=== PATIENT | female | born 1990 | race Caucasian/White ===

== ENCOUNTER 2020-03-02 14:52 | Outpatient (CLI) | payer BC ==
--- NOTE | 2020-03-02 16:27 | XRAY Report ---
PROCEDURE: Knee 3 View LT INDICATIONS: LT KNEE PAIN TECHNIQUE: 3 views of the knee(s) were acquired. COMPARISON: None. FINDINGS: Bones: No fracture or dislocation. Joint space of the knee is maintained. Normal patellar height and position. No suspicious bony lesions. Soft tissues: No joint effusion. No suspicious soft tissue calcifications. IMPRESSION: Normal left knee radiographs. Reviewed by: Hadley Friend MD on 03/02/2020 4:25 PM PDT Approved by: Hadley Friend MD on 03/02/2020 4:25 PM PDT Station ID: [id number]
== END 2020-03-02 14:53 | disposition home or self-care (01) ==
LOC: DI.S 14:52
PROVIDERS: ATTEND Naprapath
DX: M25.562 Pain in left knee (principal); G89.29 Other chronic pain

== ENCOUNTER 2022-07-10 17:18 | Emergency (ER) | payer BC ==
[2022-07-10 17:24] VITALS: BP 160/100
[2022-07-10] MEDS ORDERED: BUFFERED LIDOCAINE 10 ML SYRINGE SUBQ STA (18:08)
--- NOTE | 2022-07-10 18:22 | ED Physician Documentation ---
PD HPI UPPER EXT INJURY - Stated complaint Stated Complaint: LT THUMB LAC - Chief complaint Chief Complaint: Laceration - History obtained from History obtained from: Patient (Right-handed woman who did not know her tetanus status, but we can see that she got 1 in November 2018 cut her left nondominant thumb with a knife at home just prior to arrival.) PD PAST MEDICAL HISTORY - Present Medications Home Medications: Ambulatory Orders Medication Instructions Recorded Confirmed No Known Home Medications 07/10/22 07/10/22 - Allergies Allergies/Adverse Reactions: Allergies Allergy/AdvReac Type Severity Reaction Status Date / Time No Known Drug Allergies Allergy Verified 07/10/22 17:21 PD ED PE NORMAL - Vitals Vital signs reviewed: Yes - General General: Alert and oriented X 3, No acute distress - Extremities Extremities: Other (On the ulnar side of the distal right thumb there is a 1.5 cm laceration curvilinear that spans both skin and nail without distal neurova scular compromise.) - Neuro Neuro: Alert and oriented X 3, Normal speech Results - Vitals Vitals: Vital Signs - 24 hr 07/10/22 17:22 Temperature 36.5 C Heart Rate 80 Respiratory 16 Rate Blood Pressure 160/100 H O2 Saturation 97 Oxygen O2 Source Room air Procedures - Laceration (location) L thumb Length in cm: 1.5 Wound type: Curved Neurovascular status: Sensory intact, Motor intact Tendon involvement: Tendon intact Anesthesia: Lidocaine 1%, With bicarb (digital block) Wound preparation: Hibiclens, Irrigated copiously NS Skin layer closure: Nylon, Interrupted, Size #-0 - enter number (4-0), Sutures - enter # (4) Other: Patient tolerated well, No complications, Neurovascular intact, Tetanus UTD Departure - Departure Disposition: Home, Self Care Clinical Impression: Laceration of left thumb Qualifiers: Encounter type: initial encounter Damage to nail status: with damage Foreign body presence: without foreign body Qualified Code(s): S61.112A - Laceration without foreign body of left thumb with damage to nail, initial encounter Condition: Good Record reviewed to determine appropriate education?: Yes Instructions: ED Laceration Hand Comments: Come back for any signs of infection which would include: Redness, swelling, drainage, increased pain, or fevers. You can wash it soap and water. Keep it covered and moist with bacitracin ointment which is available over the counter; avoid neosporin. Follow-up with your physician in About 14 days for suture removal. Your blood pressure was elevated today on check into the emergency department. This does not mean that you have hypertension, it is a common phenomenon to come to the emergency department and have elevated blood pressure. I recommend that you see your primary care physician within the week to have it rechecked when you are feeling better.
== END 2022-07-10 18:46 | disposition home or self-care (01) ==
LOC: ED 17:18
DX: S61.012A Laceration without foreign body of left thumb without damage to nail, initial encounter (principal); W26.0XXA Contact with knife, initial encounter; Y92.009 Unspecified place in unspecified non-institutional (private) residence as the place of occurrence of the external cause
CPT/HCPCS: 12001; 99281

== ENCOUNTER 2022-07-14 09:47 | Outpatient (CLI) | payer BC ==
--- NOTE | 2022-07-14 14:10 | Ultrasound Report ---
PROCEDURE: Head or Neck Soft Tissue INDICATIONS: THYROID NODULE TECHNIQUE: Real time scanning was performed of the neck region of interest, with image documentation . COMPARISON: None. FINDINGS: Right: Thyroid lobe measures 4.0 x 1.2 x 1.9 cm, and is homogeneous in echotexture. No thyroid nodu les. Left: Thyroid lobe measures 4.7 x 1.2 x 1.6 cm, and is homogenous in echotexture. No thyroid nodule s. Isthmus: 4 mm thick. No thyroid nodules. IMPRESSION: 1. Borderline thyromegaly. Please correlate with thyroid function tests. 2. No thyroid nodules identified on ultrasound. Reviewed by: Nini Kramer MD on 07/14/2022 2:08 PM PST Approved by: Nini Kramer MD on 07/14/2022 2:08 PM PST Station ID: [id number]
== END 2022-07-14 09:48 | disposition home or self-care (01) ==
LOC: DI 09:47
PROVIDERS: ATTEND General Practice
DX: E01.0 Iodine-deficiency related diffuse (endemic) goiter (principal)

== ENCOUNTER 2022-07-24 08:46 | Outpatient (CLI) | payer BC ==
[2022-07-24 14:52] LABS: BASOPHILS % (AUTO) 0.6 %; EOSINOPHILS # (AUTO) 0.1 10^3/uL (0.0-0.7); EOSINOPHILS % (AUTO) 0.7 %; HCT - HEMATOCRIT 41.5 % (37.0-47.0); HGB - HEMOGLOBIN 13.6 g/dL (12.0-16.0); LYMPHOCYTES # (AUTO) 2.7 10^3/uL (1.5-3.5); LYMPHOCYTES % (AUTO) 38.4 %; MEAN CORPUSCULAR HEMOGLOBIN 30.8 pg (27.0-31.0); MEAN CORPUSCULAR HGB CONC 32.8 g/dL (32.0-36.0); MEAN CORPUSCULAR VOLUME 93.9 fL (81.0-99.0); MONOCYTES # (AUTO) 0.4 10^3/uL (0.0-1.0); MONOCYTES % (AUTO) 6.4 %; NEUTROPHILS # (AUTO) 3.7 10^3/uL (1.5-6.6); NEUTROPHILS % (AUTO) 53.6 %; PLT - PLATELET COUNT 334 10^3/uL (130-450); RED BLOOD COUNT 4.42 10^6/uL (4.20-5.40); RED CELL DISTRIBUTION WIDTH 11.7 % (12.0-15.0); WHITE BLOOD COUNT 6.9 x10^3/uL (4.8-10.8)
[2022-07-24 15:46] LABS: % IRON SATURATION 47 % (20-50); ALBUMIN 3.8 g/dL (3.2-5.5); ALBUMIN/GLOBULIN RATIO 1.3 (1.0-2.2); ALKALINE PHOSPHATASE 33 IU/L (42-121); ALT ALANINE AMINOTRANSFERASE 14 IU/L (10-60); AST ASPARTATE AMINOTRANSFERASE 11 IU/L (10-42); BILIRUBIN,TOTAL 0.8 mg/dL (0.2-1.0); BUN - BLOOD UREA NITROGEN 12 mg/dL (6-20); CALCIUM 8.8 mg/dL (8.5-10.3); CARBON DIOXIDE - CO2 22 mmol/L (21-32); CHLORIDE 102 mmol/L (101-111); CHOL/HDL RATIO 2.9 (<4.4); CHOLESTEROL 133 mg/dL; CREATININE 0.6 mg/dL (0.4-1.0); GFR - MDRD 117 (>89); GLUCOSE 97 mg/dL (70-100); HDL CHOLESTEROL 46 mg/dL; IRON 153 ug/dL (28-170); LDL CHOLESTEROL,CALCULATED 76 mg/dL; LDL/HDL RATIO 1.7 (<4.4); POTASSIUM 4.4 mmol/L (3.5-5.0); SODIUM 132 mmol/L (135-145); TOTAL IRON BINDING CAPACITY 325 ug/dL (250-450); TOTAL PROTEIN 6.7 g/dL (6.7-8.2); TRANSFERRIN 232 mg/dL (192-382); TRIGLYCERIDES 55 mg/dL; VLDL CHOLESTEROL 11 mg/dL
[2022-07-24 16:06] LABS: THYROID STIMULATING HORMONE 4.04 uIU/mL (0.34-5.60)
[2022-07-24 16:09] LABS: FREE T3 2.85 pg/mL (2.5-3.9)
[2022-07-24 16:10] LABS: FREE T4 (FREE THYROXINE) 0.77 ng/dL (0.58-1.64)
[2022-07-24 16:14] LABS: FERRITIN 57.1 ng/mL (11.0-306.8)
== END 2022-07-24 08:47 | disposition home or self-care (01) ==
LOC: LAB.S 08:46
PROVIDERS: ATTEND General Practice
DX: Z00.01 Encounter for general adult medical examination with abnormal findings (principal); E04.1 Nontoxic single thyroid nodule; N92.0 Excessive and frequent menstruation with regular cycle
CPT/HCPCS: 36415; 80053; 80061; 82728; 83540; 83721; 84439; 84443; 84466; 84481; 85025

== ENCOUNTER 2022-08-14 09:11 | Outpatient (CLI) | payer BC ==
[2022-08-14 14:25] LABS: BASOPHILS % (AUTO) 0.4 %; EOSINOPHILS # (AUTO) 0.1 10^3/uL (0.0-0.7); EOSINOPHILS % (AUTO) 0.7 %; HCT - HEMATOCRIT 38.7 % (37.0-47.0); HGB - HEMOGLOBIN 12.6 g/dL (12.0-16.0); LYMPHOCYTES # (AUTO) 2.2 10^3/uL (1.5-3.5); LYMPHOCYTES % (AUTO) 29.7 %; MEAN CORPUSCULAR HEMOGLOBIN 30.8 pg (27.0-31.0); MEAN CORPUSCULAR HGB CONC 32.6 g/dL (32.0-36.0); MEAN CORPUSCULAR VOLUME 94.6 fL (81.0-99.0); MEAN PLATELET VOLUME 8.9 fL (7.9-10.8); MONOCYTES # (AUTO) 0.4 10^3/uL (0.0-1.0); MONOCYTES % (AUTO) 5.2 %; NEUTROPHILS # (AUTO) 4.6 10^3/uL (1.5-6.6); NEUTROPHILS % (AUTO) 63.7 %; PLT - PLATELET COUNT 337 10^3/uL (130-450); RED BLOOD COUNT 4.09 10^6/uL (4.20-5.40); RED CELL DISTRIBUTION WIDTH 11.6 % (12.0-15.0); WHITE BLOOD COUNT 7.3 x10^3/uL (4.8-10.8)
[2022-08-14 15:21] LABS: FREE T4 (FREE THYROXINE) 0.82 ng/dL (0.58-1.64)
[2022-08-14 21:15] LABS: ESTIMATED AVERAGE GLUCOSE 97 mg/dL (70-100)
[2022-08-15 06:10] LABS: HIV SCREEN 4TH GENERATION Non Reactive (Non Reactive)
[2022-08-15 07:10] LABS: HCV AB <0.1 s/co ratio (0.0-0.9)
[2022-08-16 02:08] LABS: HBsAG SCREEN Negative (Negative)
[2022-08-16 03:09] LABS: RPR Non Reactive (Non Reactive)
[2022-08-16 15:08] LABS: VARICELLA-ZOSTER AB IGM <0.91 index (0.00-0.90)
== END 2022-08-14 09:12 | disposition home or self-care (01) ==
LOC: LAB.S 09:11
PROVIDERS: ATTEND Nurse Practitioner Obstetrics & Gynecology
DX: O99.213 Obesity complicating pregnancy, third trimester (principal); Z36.89 Encounter for other specified antenatal screening; O99.283 Endocrine, nutritional and metabolic diseases complicating pregnancy, third trimester; Z3A.00 Weeks of gestation of pregnancy not specified
CPT/HCPCS: 36415; 83036; 84439; 84443; 85025; 86592; 86762; 86787; 86803; 86850; 86900; 86901; 87340; 87389

== ENCOUNTER 2022-09-15 11:00 | Outpatient (CLI) | payer BC ==
[2022-09-15 16:57] LABS: THYROID STIMULATING HORMONE 2.58 uIU/mL (0.34-5.60)
[2022-09-15 16:58] LABS: FREE T4 (FREE THYROXINE) 0.74 ng/dL (0.58-1.64)
== END 2022-09-15 11:01 | disposition home or self-care (01) ==
LOC: LAB.S 11:00
PROVIDERS: ATTEND Nurse Practitioner Obstetrics & Gynecology
DX: E03.9 Hypothyroidism, unspecified (principal)
CPT/HCPCS: 36415; 84439; 84443

== ENCOUNTER 2022-10-27 15:13 | Outpatient (CLI) | payer BC ==
--- NOTE | 2022-10-28 17:12 | Ultrasound Report ---
PROCEDURE: OB Detailed Eval INDICATIONS: SUPERVISION OF OUTSIDE/PRIOR DATING DATA: Last menstrual period (LMP): 06/01/2022. LMP-based estimated date of delivery (ADAN): 03/08/2023. First dating scan (date and location): 08/08/2022. Estimated date of delivery (ADAN) from first dating scan: 03/14/2023. TECHNIQUE: Real-time scanning was performed of the fetus, with image documentation and biometric measurements. COMPARISON: Prior report with no images dated 08/08/2022 FINDINGS: General: A single living intrauterine gestation is present. Presentation: Vertex Placenta: Placental position is posterior, without previa. Amniotic fluid index: 10.1 cm, within normal limits for gestational age. heart rate: 145 beats per minute. Maternal cervical canal: 4.9 cm long; normal length is 2.5 cm or more. biometrics: Biparietal diameter: 5.1 cm 21 weeks 2 days Head circumference: 19.1 cm 21 weeks 2 days Abdominal circumference: 16.3 cm 21 weeks 3 days Femur length: 3.6 cm 21 weeks 3 days Estimated gestational age from initial scan: 20 weeks 2 days Composite gestational age from present scan: 20 weeks 6 days Estimated weight and percentile: 420 g 94th percentile Measurement variability in biometric dating: +/- 10 days from 12-20 weeks gestation, +/- 2 weeks from 20-30 weeks gestation, +/- 3 weeks at 30 weeks gestation or later. Anatomic survey: Neuro: Ventricles are normal at less than 10 mm. Cisterna magna is normal at 3-11 mm. Cerebellum i s normal in size and morphology. Nuchal skin fold: Normal at less than 6 mm between 14 and 20 weeks gestational age. Face: Nose and lips, facial profile are normal. Spine: Not well seen Heart: 4-chambered heart and normal ventricular outflow tracts are not well seen. Diaphragm: Diaphragm is intact. Stomach: Left-sided stomach is present. Kidneys: No hydronephrosis. Normal is less than 5 mm in 2nd trimester, less than 7 mm in 3rd trimester. Cord: Not well seen Bladder: Normal in size. Extremities: Not well seen IMPRESSION: Single live intrauterine with ultrasound gestational age of 20 weeks 6 days. Multiple anatomic regions are not well visualized. Recommend follow-up ultrasound for further evaluat ion. Reviewed by: Cyn Conklin MD on 10/28/2022 5:11 PM PDT Approved by: Cyn Conklin MD on 10/28/2022 5:11 PM PDT Station ID: [id number]
== END 2022-10-27 15:14 | disposition home or self-care (01) ==
LOC: DI 15:13
PROVIDERS: ATTEND Nurse Practitioner Obstetrics & Gynecology
DX: Z34.02 Encounter for supervision of normal first pregnancy, second trimester (principal); Z36.89 Encounter for other specified antenatal screening

== ENCOUNTER 2022-11-18 16:40 | Outpatient (CLI) | payer BC ==
--- NOTE | 2022-11-19 16:13 | Ultrasound Report ---
PROCEDURE: OB F/U or Repeat INDICATIONS: SUPERVISION OF OUTSIDE/PRIOR DATING DATA: Last menstrual period (LMP): 06/01/2022. First dating scan (date and location): 08/08/2022. Estimated date of delivery (ADAN) from first dating scan: 03/14/2023. TECHNIQUE: Real-time scanning was performed of the fetus, with image documentation and biometric measurements. Endovaginal scanning: No COMPARISON: Ultrasound dated 02/26/2023 FINDINGS: General: A single living intrauterine gestation is present. Presentation: Vertex Placenta: Placental position is posterior/fundal, without previa. Amniotic fluid index: 16.8 cm, 68th percentile for gestational age. heart rate: 147 beats per minute. Maternal cervical canal: 5.4 cm long; normal length is 2.5 cm or more. Estimated gestational age from initial scan: 24 weeks 2 days Measurement variability in biometric dating: +/- 10 days from 12-20 weeks gestation, +/- 2 weeks from 20-30 weeks gestation, +/- 3 weeks at 30 weeks gestation or more. Other: Current survey of anatomy currently includes normal spine, four-chamber heart, left and right ventricular outflow tracts, chest/diaphragm, stomach/abdomen, bilateral renal regions, co rd and cord insertion, urinary bladder/pelvis, bilateral upper and lower extremities. IMPRESSION: 1. Single living intrauterine gestation. 2. Normal survey of anatomy as above. Reviewed by: Francisca Avery MD on 11/19/2022 4:12 PM PDT Approved by: Francisca Avery MD on 11/19/2022 4:12 PM PDT Station ID: [id number]
== END 2022-11-18 16:41 | disposition home or self-care (01) ==
LOC: DI 16:40
PROVIDERS: ATTEND Nurse Practitioner Obstetrics & Gynecology
DX: Z34.02 Encounter for supervision of normal first pregnancy, second trimester (principal); Z36.89 Encounter for other specified antenatal screening

== ENCOUNTER 2022-12-12 15:46 | Outpatient (CLI) | payer BC ==
[2022-12-12 17:01] LABS: HCT - HEMATOCRIT 35.4 % (37.0-47.0); HGB - HEMOGLOBIN 11.9 g/dL (12.0-16.0); MEAN CORPUSCULAR HEMOGLOBIN 30.7 pg (27.0-31.0); MEAN CORPUSCULAR HGB CONC 33.6 g/dL (32.0-36.0); MEAN CORPUSCULAR VOLUME 91.5 fL (81.0-99.0); MEAN PLATELET VOLUME 8.4 fL (7.9-10.8); RED BLOOD COUNT 3.87 10^6/uL (4.20-5.40); WHITE BLOOD COUNT 9.5 x10^3/uL (4.8-10.8)
[2022-12-12 17:31] LABS: THYROID STIMULATING HORMONE 1.71 uIU/mL (0.34-5.60)
[2022-12-12 17:33] LABS: FREE T4 (FREE THYROXINE) 0.82 ng/dL (0.58-1.64)
== END 2022-12-12 15:47 | disposition home or self-care (01) ==
LOC: LAB 15:46
PROVIDERS: ATTEND Nurse Practitioner Obstetrics & Gynecology
DX: O99.283 Endocrine, nutritional and metabolic diseases complicating pregnancy, third trimester (principal); Z36.9 Encounter for antenatal screening, unspecified
CPT/HCPCS: 36415; 82950; 84439; 84443; 85027

== ENCOUNTER → 2023-01-13 | Outpatient (CLI) | payer BC ==
--- NOTE | 2023-01-14 15:44 | Ultrasound Report ---
PROCEDURE: OB F/U or Repeat INDICATIONS: UTERINE SIZE-DATE DISCREPANCY OUTSIDE/PRIOR DATING DATA: Last menstrual period (LMP): 06/01/2022. LMP-based estimated date of delivery (ADAN): 03/08/2023. First dating scan (date and location): 08/08/2022. Estimated date of delivery (ADAN) from first dating scan: 03/14/2023. The below data below was generated using the ultrasound ADAN of 03/14/23 TECHNIQUE: Real-time scanning was performed of the fetus, with image documentation and biometric measurements. COMPARISON: OB ultrasound 11/18/2022 FINDINGS: General: A single living intrauterine gestation is present. Presentation: Vertex Placenta: Placental position is posterior, without previa. Amniotic fluid index: 21.6 cm, within normal limits for gestational age. heart rate: 141 beats per minute. Maternal cervical canal: Closed biometrics: Biparietal diameter: 8.1 cm 32 weeks 3 days Head circumference: 31.2 cm 35 weeks 0 days Abdominal circumference: 27.9 cm 32 weeks 0 days Femur length: 6.0 cm 31 weeks 3 days Estimated gestational age from initial scan: 31 weeks 3 days Composite gestational age from present scan: 32 weeks 5 days Estimated weight and percentile: 1908 g 62nd percentile Measurement variability in biometric dating: +/- 10 days from 12-20 weeks gestation, +/- 2 weeks from 20-30 weeks gestation, +/- 3 weeks at 30 weeks gestation or more. Other: Not applicable. IMPRESSION: Single live intrauterine with ultrasound gestational age today of 32 weeks 5 days. ALPA is within normal limits. Reviewed by: Cyn Conklin MD on 01/14/2023 3:43 PM PDT Approved by: Cyn Conklin MD on 01/14/2023 3:43 PM PDT Station ID: [id number]
== END ==
LOC: DI 16:40
PROVIDERS: ATTEND Nurse Practitioner Obstetrics & Gynecology
DX: O26.843 Uterine size-date discrepancy, third trimester (principal); Z3A.32 32 weeks gestation of pregnancy

== ENCOUNTER 2023-03-16 12:46 | Inpatient (IN) | payer BC ==
[2023-03-16] MEDS ORDERED: SODIUM CHLORIDE FLUSH 0.9% 10 ML SYRINGE IVP PRN (13:48)
--- NOTE | 2023-03-16 14:38 | HISTORY & PHYSICAL EXAMINATION ---
Admit History - Visit Reason Visit Reason: Other - : 1 Parity: 0 Premature: 0 Ectopic: 0 : 0 Care: positive: [facility] Risk/History: positive: None Complications This : positive: None Smoking Status: Never smoker - Mother's Labs Mother's Blood Type: positive: B Mother's RH: positive: Positive GBS: positive: Group B Step Negative Rubella Status: positive: Immune - HPI Diagnosis/Indication for NST: Other - Results and Plan Plan: NST reactive. FHR 140s, moderate variability, + accels, no decels No contractions palpated via tocometry Meds/Allgy - Home Medications Home Medications: Ambulatory Orders Medication Instructions Recorded Confirmed No Known Home Medications 07/10/22 07/10/22 - Allergies Allergies/Adverse Reactions: Allergies Allergy/AdvReac Type Severity Reaction Status Date / Time No Known Drug Allergies Allergy Verified 07/10/22 17:21 Review of Systems - Constitutional Constitutional: denies: Fatigue, Fever, Chills, Malaise - Eyes Eyes: denies: Blurred vision, Spots in vision, Dipolpia - Cardiovascular Cariovascular: denies: Irregular heart rate, Palpitations, Chest pain, Edema - Respiratory Respiratory: denies: Cough, Wheezing, SOB at rest - Gastrointestinal Gastrointestinal: denies: Constipation, Diarrhea, Nausea, Vomiting - Genitourinary Genitourinary: denies: Dysuria, Frequency - Integumentary Integumentary: denies: Rash, Pruritis - Neurological Neurological: denies: Headache - Psychiatric Psychiatric: denies: Depression, Anxiety Physical - Abdominal Exam Contraction Frequency (min/apart): none Contraction Intensity: positive: Mild Uterine Resting Tone: positive: Soft - Monitoring Heart Rate Baseline: 140 Strip Review: positive: Category I - Presentation Presentation: positive: Vertex - Vaginal Exam Membranes: positive: Membranes intact Dilation (in cm): 1 Effacement (%): 30 Station: positive: -3 Cervical Position: positive: Midposition - Speculum Exam Speculum Exam Performed: positive: No Findings: positive: Other Plan for Labor - Plan For Labor I expect patient to be DC'd or transferred within 96 hours.: Yes Plan for Labor: HPI: Senait presents to [facility] for medical induction of labor secondary to postdates . She denies vaginal bleeding, leakage of fluid, or contractions. She reports +FM. She denies JUNE, visual disturbances, RUQ or epigastric pain. Cervix is 1/30/-3 and vertex with intact membranes. She is supported by her Schuyler today. She has been a patient of [facility] for the duration of her which has remained uncomplicated with the exception of her BMI which pre- was 43 and is now 45. She is also noted to have hypothyroidism which has remained stable at her current 50mcg levothyroxine dosage. She will be admitted to [facility] for medical induction of labor. 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 SAB x0. Last [id number] WNL, no hx abnormal. Denies history of gonorrhea, chlamydia, genital herpes, oral herpes or any other STI. Sexual partner does NOT have HSV (oral or genital). Medical Hx: Anxiety/depression; thyroid nodule, hypothyroidism Surgical Hx: wisdom teeth removal Social Hx: No ETOH or IVDA. Never smoker. 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 Sexual behavior: Monogamous with male partner. Stopped drinking alcohol due to . Denies current use of tobacco, marijuana or other recreational drugs. Reports that she is safe in current relationship. Family Hx: Denies family history of congenital anomalies, Cystic Fibrosis or chromosomal abnormalities; MGM - breast cancer; mother - thyroid cancer and hypothyroidism Allergies: NKDA Medications: PNV, Levothyroxine 50mcg, probiotic course: B positive, antibody negative Rubella immune; varicella non-immune Hep B neg, Hep C neg HIV non-reactive; RPR non-reactive Genetic screening - declined Hgb A1c: 5 Initial U/S @ 9.5wks c/w LMP dating FAS WNL however multiple anatomic regions not well seen. Posterior placenta, no previa. Size c/w dating (EFW 94%tile). F/u ordered. F/u ultrasound WNL. Glucola 126 COVID-19 vaccine x 3 Tdap: received 3rd trimester Growth and ALPA at 32wks size c/w dated (EFW 62%tile) GBS negative Physical exam: Normocephalic, atraumatic Heart RRR w/o M/G/R Lungs CTAB Abdomen gravid, soft, nontender, obese FHR baseline 130s, moderate variability, + accels, no decels No contractions appreciated via tocometry SVE 08/04/-3, midposition, medium consistency. Vertex with intact membranes Farrar cervical ripening balloon inserted with 60cc intrauterine and 60cc vaginal balloons - pt tolerated placement well. EFW 3700g Bilateral LE's trace edema Mood is good Assessment: 32yo @ 41.1wks gestation by LMP c/w 9.5wk U/S Postdates GBS negative FHR Category I Plan: Admit to [facility] for medical induction of labor secondary to postdates . Continuous monitoring. Cervical ripening balloon inserted. Maintain x 12 hours after placement for cervical ripening. Initial misoprostol 50mcg BC misoprostol q 4 hours for pre-induction cervical ripening. Jacuzzi PRN. Nitrous oxide PRN. Epidural per maternal request. Anticipate .
[2023-03-16] MEDS ORDERED: miSOPROStoL 200 MCG TABLET PR PRN (15:09)
[2023-03-16] MEDS ORDERED: CARBOPROST TROMETHAMINE 250 MCG/ML AMP IM PRN (15:09)
[2023-03-16] MEDS ORDERED: miSOPROStoL 200 MCG TABLET PR ONE (15:09)
[2023-03-16] MEDS ORDERED: OXYTOCIN/SODIUM CHLORIDE 500 ML IV PRN (15:09)
[2023-03-16] MEDS ORDERED: ACETAMINOPHEN 325 MG TABLET PO PRN (15:09)
[2023-03-16] MEDS ORDERED: fentaNYL 100 MCG/2 ML VIAL IVP PRN (15:09)
[2023-03-16] MEDS ORDERED: METHYLERGONOVINE 0.2 MG/ML VIAL IM PRN (15:09)
[2023-03-16 15:13] LABS: BASOPHILS # (AUTO) 0.1 10^3/uL (0.0-0.1); BASOPHILS % (AUTO) 0.5 %; EOSINOPHILS # (AUTO) 0.1 10^3/uL (0.0-0.7); HCT - HEMATOCRIT 36.8 % (37.0-47.0); HGB - HEMOGLOBIN 12.2 g/dL (12.0-16.0); LYMPHOCYTES # (AUTO) 2.5 10^3/uL (1.5-3.5); MEAN CORPUSCULAR HEMOGLOBIN 30.6 pg (27.0-31.0); MEAN CORPUSCULAR HGB CONC 33.2 g/dL (32.0-36.0); MEAN CORPUSCULAR VOLUME 92.2 fL (81.0-99.0); MEAN PLATELET VOLUME 9.3 fL (7.9-10.8); MONOCYTES # (AUTO) 0.5 10^3/uL (0.0-1.0); MONOCYTES % (AUTO) 4.7 %; NEUTROPHILS # (AUTO) 8.2 10^3/uL (1.5-6.6); NEUTROPHILS % (AUTO) 71.5 %; PLT - PLATELET COUNT 307 10^3/uL (130-450); RED BLOOD COUNT 3.99 10^6/uL (4.20-5.40); RED CELL DISTRIBUTION WIDTH 12.5 % (12.0-15.0); WHITE BLOOD COUNT 11.5 x10^3/uL (4.8-10.8)
[2023-03-16] MEDS: miSOPROStoL 100 MCG TABLET BC SCH ×2 (15:53→20:30)
[2023-03-16] MEDS: ONDANSETRON 4 MG/2 ML VIAL IVP PRN ×2 (17:16→22:16)
--- NOTE | 2023-03-16 21:44 | PROVIDER PROGRESS NOTE ---
Labor Progress Note - Uterine Monitoring Uterine Monitoring Mode: positive: External toco Contraction Frequency (min/apart): 2-6 Contraction Intensity: positive: Moderate Uterine Resting Tone: positive: Soft - Monitoring Monitor Mode: positive: External ultrasound Heart Rate Baseline: 135 Heart Rate Variability: positive: Moderate (6-25 bmp) Accelerations: positive: Present, 15x15 Decelerations: positive: None Strip Review: positive: Category I - Vaginal Exam Dilation (in cm): 5 Effacement (%): 75 Station: -2 Cervical Position: Midposition - Labor Progress Note Labor Progress Note/Additional Text: S: Breathing through contractions. She feels like she is tolerating them well bu t states they are getting stronger. Her Schuyler is supportive at the bedside. O: FHR baseline 130s, moderate variability, + accels, no decels Contractions palpate mild to moderate every 2-6 minutes with soft resting tone SVE 5/75/-2, midposition, soft. Vertex. AROM scant amount of clear fluid S/p 1 dose of 50mcg BC misoprostol Farrar cervical ripening balloon expelled at approximately 1730. A: 32yo @ 41.1wks gestation by LMP c/w 9.5wk U/S Postdates Early labor GBS positive FHR Category I P: Expectant management x 1 hour. If leakage of amniotic fluid continues and contractions increase in both frequency and intensity will proceed with expectant management. Otherwise will consider initiation of pitocin for augmentation of labor at that time. Continuous monitoring. Encouraged ambulation and position changes. Jacuzzi PRN. Nitrous oxide PRN. Epidural per maternal request. Anticipate .
[2023-03-16] MEDS: LACTATED RINGERS 1,000 ML IV SCH (23:39)
[2023-03-16] MEDS ORDERED: ROPIVACAINE 0.2% 200 MG/100 ML BAG EP ONE (23:57)
[2023-03-17] MEDS ORDERED: METOCLOPRAMIDE 10 MG/2 ML VIAL IVP PRN (00:24)
[2023-03-17] MEDS ORDERED: ROPIVACAINE 0.2% 200 MG/100 ML BAG EP PRN (00:24)
[2023-03-17] MEDS ORDERED: ePHEDrine 50 MG/ML VIAL IVP PRN (00:24)
[2023-03-17] MEDS ORDERED: NALOXONE 0.4 MG/ML VIAL IVP PRN (00:24)
[2023-03-17] MEDS ORDERED: ONDANSETRON 4 MG/2 ML VIAL IVP PRN (00:24)
[2023-03-17] MEDS ORDERED: NALBUPHINE 10 MG/ML AMP IVP PRN (00:24)
[2023-03-17] MEDS ORDERED: diphenhydrAMINE INJ 50 MG/ML VIAL IVP PRN (00:24)
--- NOTE | 2023-03-17 00:28 | ANESTHESIA ---
Pre-Anesthesia VS, & Labs - Diagnosis term labor, IUP - Procedure epidural for Vital Signs: Temp Pulse Resp BP Pulse Ox O2 Flow Rate 36.5 C 03/16/23 15:10 Height: 5 ft 7 in Weight (kg): 131.542 kg Body Mass Index: 45.4 BMI Classification: Morbidly Obese - NPO Last Fluid Intake: t/o night Last Food Intake: dinner - Is Patient ?: Yes - Lab Results Current Lab Results: Laboratory Tests 03/16/23 14:50: WBC 11.5 H, RBC 3.99 L, Hgb 12.2, Hct 36.8 L, MCV 92.2, MCH 30.6 , MCHC 33.2, RDW 12.5, Plt Count 307, MPV 9.3, Neut # (Auto) 8.2 H, Lymph # (Auto) 2.5, [place] # (Auto) 0.5, Eos # (Auto) 0.1, Baso # (Auto) 0.1, Absolute Nucleated RBC 0.00, Nucleated RBC % 0.0 03/16/23 14:50: Blood Type B POSITIVE, Antibody Screen NEGATIVE, Crossmatch IS Only See Detail Lab results reviewed: Yes Fish Bones: 03/16/23 14:50 Home Medications and Allergies Active Medications Acetaminophen (Acetaminophen 325 Mg Tablet) 650 mg PO Q6H PRN PRN Reason: Mild Pain or Fever>38C(100.4F) Carboprost Tromethamine (Carboprost Tromethamine 250 Mcg/Ml Amp) 250 mcg IM PRN PRN PRN Reason: Post- Hemorrhage Diphenhydramine HCl (Diphenhydramine Inj 50 Mg/Ml Vial) 12.5 - 25 mg IVP Q6HR PRN PRN Reason: ITCHING Ephedrine Sulfate (Ephedrine 50 Mg/Ml Vial) 5 mg IVP Q5M PRN PRN Reason: For SBP<100;give until SBP>100 Fentanyl (Fentanyl 100 Mcg/2 Ml Vial) 50 mcg IVP Q1H PRN PRN Reason: Severe Pain (Level 7-10) Lactated Ringer's (Lr) 1,000 mls @ 100 mls/hr IV .Q10H [facility] Last Infusion: 03/17/23 00:15 Dose: 100 mls/hr Oxytocin/Sodium Chloride (Pitocin/Sodium Chloride) 500 mls @ 999 mls/hr IV PRN PRN; Protocol PRN Reason: POST- HEMORR PREVENTION Ropivacaine (Naropin 0.2%) 200 mg in 100 mls @ 0 mls/hr EP PRN PRN; Protocol PRN Reason: PAIN Levothyroxine Sodium (Levothyroxine 25 Mcg Tablet) 50 mcg PO QDAC [facility] Methylergonovine Maleate (Methylergonovine 0.2 Mg/Ml Vial) 0.2 mg IM Q4HR PRN PRN Reason: Post- Hemorrhage Metoclopramide HCl (Metoclopramide 10 Mg/2 Ml Vial) 10 mg IVP Q6HR PRN PRN Reason: Nausea / Vomiting Misoprostol (Misoprostol 200 Mcg Tablet) 800 mcg ME PRN PRN PRN Reason: Post- Hemorrhage Misoprostol (Misoprostol 100 Mcg Tablet) 50 mcg BC Q4H [facility] Last Admin: 03/16/23 20:30 Dose: Not Given Nalbuphine HCl (Nalbuphine 10 Mg/Ml Amp) 2.5 - 5 mg IVP Q4H PRN PRN Reason: ITCHING Naloxone HCl (Naloxone 0.4 Mg/Ml Vial) 0.1 mg IVP Q2M PRN PRN Reason: RR<8 Ondansetron HCl (Ondansetron 4 Mg/2 Ml Vial) 4 mg IVP Q4HR PRN PRN Reason: Nausea / Vomiting Last Admin: 03/16/23 22:16 Dose: 4 mg Ondansetron HCl (Ondansetron 4 Mg/2 Ml Vial) 4 mg IVP Q6HR PRN PRN Reason: Nausea / Vomiting Sodium Chloride (Sodium Chloride Flush 0.9% 10 Ml Syringe) 10 ml IVP 0100,0900,1700 [facility] Sodium Chloride (Sodium Chloride Flush 0.9% 10 Ml Syringe) 10 ml IVP PRN PRN PRN Reason: NEEDED PER PROVIDER ORDERS Terbutaline Sulfate (Terbutaline 1 Mg/Ml Vial) 0.25 mg SUBQ Q1H [facility] No Known Home Medications 07/10/22 Allergies/Adverse Reactions: Allergies Allergy/AdvReac Type Severity Reaction Status Date / Time No Known Drug Allergies Allergy Verified 07/10/22 17:21 Anes History & Medical History - Anesthetic History Anesthesia Complications: reports: No previous complications Family history of Anesthesia Complications: Denies Family history of Malignant Hyperthermia: Denies - Medical History Cardiovascular: reports: None Pulmonary: reports: None Gastrointestinal: reports: None Urinary: reports: None Neuro: reports: None Musculoskeletal: reports: None Endocrine/Autoimmune: reports: HyPOthyroidism Blood Disorders: reports: None Skin: reports: None Smoking Status: Never smoker - Surgical History Other Past Surgical History: wisdom teeth extraction - Obstetrical History : 1 Parity: 0 Events: reports: None Complications: reports: None Exam General: Alert, Oriented x3, Cooperative Mouth Openin Fingerbreadth Respiratory: No respiratory distress Cardiovascular: Regular rate Neurological: Normal speech Mental/Cognitive Status: Alert/Oriented X3, Normal for patient Cognitive Status: Within normal limits Plan Anesthesia Type: Epidural Consent for Procedure(s) Verified and Reviewed: Yes Code Status: Attempt Resuscitation ASA classification: 2-Mild systemic disease Is this case an emergency?: No
[2023-03-17] MEDS: LACTATED RINGERS 1,000 ML IV SCH ×2 (05:50→10:41)
[2023-03-17] MEDS: SODIUM CHLORIDE FLUSH 0.9% 10 ML SYRINGE IVP SCH ×3 (08:42→09:06)
[2023-03-17] MEDS: ONDANSETRON 4 MG/2 ML VIAL IVP PRN (08:42)
[2023-03-17] MEDS: TERBUTALINE 1 MG/ML VIAL SUBQ SCH ×7 (08:43→09:06)
[2023-03-17] MEDS: miSOPROStoL 100 MCG TABLET BC SCH ×2 (08:43→08:52)
[2023-03-17] MEDS ORDERED: TERBUTALINE 1 MG/ML VIAL SUBQ PRN (09:08)
--- NOTE | 2023-03-17 09:12 | PROVIDER PROGRESS NOTE ---
Labor Progress Note - Uterine Monitoring Uterine Monitoring Mode: positive: External toco Contraction Intensity: positive: Moderate Uterine Resting Tone: positive: Soft - Monitoring Monitor Mode: positive: External ultrasound Heart Rate Baseline: 130 Heart Rate Variability: positive: Moderate (6-25 bmp) Accelerations: positive: Absent Decelerations: positive: None Strip Review: positive: Category I - Vaginal Exam Dilation (in cm): 6 Effacement (%): 80 Station: -2 Cervical Position: Midposition - Labor Progress Note Labor Progress Note/Additional Text: S: Patient comfortable in bed with her epidural. She states she was able to get a little bit of sleep last night but continues to feel tired and is hoping to be able to rest before she meets her baby. Her is supportive at the bedside. O: FHR baseline 130s, moderate variability, no accels, no decels Contractions palpate mild to moderate every 2-6 minutes with soft resting tone SVE 6/80/-2, midposition, soft and vertex. A: 32yo @ 41.2wks gestation by LMP c/w 9.5wk U/S Postdates GBS negative FHR Category I Increased risk of hemorrhage (pt has been typed and crossed x 2 units) P: Initiate pitocin for augmentation of labor with titration per protocol. Continuous monitoring. Maintain epidural for pain management. Encouraged rotate in bed on peanut ball. Anticipate .
[2023-03-17] MEDS: OXYTOCIN/SODIUM CHLORIDE 500 ML IV SCH (09:30)
[2023-03-17] MEDS: LEVOTHYROXINE 25 MCG TABLET PO SCH (10:39)
[2023-03-17] MEDS ORDERED: SODIUM CHLORIDE 0.9% 1,000 ML ONE (11:35)
[2023-03-17] MEDS ORDERED: TRANEXAMIC ACID IN NACL 0 MG/0 ML BAG IV ONE (13:59)
[2023-03-17] MEDS ORDERED: WITCH HAZEL/GLYCERIN 1 PAD TOP PRN (14:42)
[2023-03-17] MEDS ORDERED: HYDROCORTISONE 1% CREAM 28 GM TUBE PR PRN (14:42)
[2023-03-17] MEDS ORDERED: ACETAMINOPHEN 325 MG TABLET PO PRN ×2 (14:43→14:58)
[2023-03-17] MEDS ORDERED: AMPICILLIN 2 GM in SODIUM CHLORIDE 0.9% MINIBAG 100 ML IV SCH (14:45)
--- NOTE | 2023-03-17 14:56 | DELIVERY NOTE ---
Delivery Note - Labor Labor: positive: Augmented by oxytocin, Induced by ARM - Delivery Method Infant Delivery Method: positive: Spontaneous vaginal delivery - Cervical Ripening Method Cervical Ripening Method: positive: Balloon device, Misoprostil - Presentation Presentation: positive: Vertex, MELIDA - right occiput anterior - Nuchal Cord Nuchal Cord: positive: Present - Amniotic Fluid Description Amniotic Fluid Description: positive: Clear - Episiotomy Type Episiotomy Type: positive: None - Laceration Laceration: positive: 2nd degree, Vaginal - Suture Suture Type: positive: Vicryl Suture Size: positive: 2-0 - Delivery Outcome Delivery Outcome: positive: Livebirth - [place] : positive: Placed in direct skin contact with mother, Bulb syringe, Stimulated, Warmed, [place] used sex: positive: Female - Cord Cord: positive: 3 vessels - Placenta Placenta: positive: Intact, Spontaneous - Estimated Blood Loss Estimated Blood Loss (in cc): 200 - Post Delivery Events Post Delivery Events: positive: Other - Delivery Comments (Free Text/Narrative) Delivery Comments (Free Text/Narrative): Labor: This 32yo @ 41.1 wks gestation presented to [facility] for medical induction of labor secondary to postdates . Cervix was 1/30/-3 and vertex with intact membranes. [place] cervical ripening balloon was inserted and she was given 50mcg of BC misoprostol x once for effective pre-induction cervical ripening. AROM occurred on 03/16/2023 @ 2058 and was noted to be a small amount of clear fluid. Epidural was placed per maternal request. Pitocin was initiated for augmentation of labor for a maximum infusion rate of 8mU/mL. FHR pattern demonstrated Category I pattern with intermittent periods of Category II secondary to variable decelerations however overall remained reassuring. She progressed to c/c/0 at 1134 with onset of active pushing at 1136. : Normal SVB of viable female on 03/17/2023 @ 1345. Nuchal cord x 2 was somersaulted through and reduced after delivery. The was placed on maternal abdomen, stimulated, dried, and placed skin to skin. Apgars were 8/8 at 1 and 5 minutes respectively. Pitocin administered via IV for hemostasis. The umbilical cord was allowed to stop pulsating at which time it was doubly clamped by CNM and cut by FOB. Cord blood was obtained. 3VC. Fundal massage and gentle cord traction applied for active management of the third stage. Placenta delivered spontaneously and intact at 1357. EBL 200mL. Fourth stage: Uterine fundus firm and there is no excessive bleeding. The perineum, vagina, and cervix were inspected and found to have 2nd degree perineal laceration which was repaired using a 2-[address]-1 needle, in standard fashion and under sterile conditions. Vaginal examination following repair was done. Tissues well approximated. initiated. Family bonding well. Maternal temperature during 2nd stage increased to 38.1 with no additional evidence of infection. 30 minutes the patient's temperature increased to 39.1 and antibiotics were ordered secondarily to be administered via IV x once. Both mother and baby were left in stable condition.
[2023-03-17] MEDS ORDERED: AMPICILLIN 2 GM in SODIUM CHLORIDE 0.9% MINIBAG 100 ML IV ONE (15:00)
[2023-03-17] MEDS: IBUPROFEN 800 MG TABLET PO SCH ×2 (15:51→22:01)
[2023-03-17] MEDS: ACETAMINOPHEN 500 MG TABLET PO PRN ×2 (15:51→23:47)
[2023-03-17] MEDS ORDERED: GENTAMICIN IV ONE (16:00)
[2023-03-17] MEDS ORDERED: SODIUM CHLORIDE 0.9% IV ONE (16:00)
[2023-03-17] MEDS ORDERED: GENTAMICIN 80MG VIAL 320 MG in SODIUM CHLORIDE 0.9% 100ML 100 ML IV ONE (16:00)
[2023-03-17] MEDS: DOCUSATE SODIUM 100 MG CAPSULE PO SCH (21:59)
[2023-03-18] MEDS: IBUPROFEN 800 MG TABLET PO SCH ×3 (04:10→16:22)
[2023-03-18] MEDS: ACETAMINOPHEN 500 MG TABLET PO PRN ×2 (09:48→18:03)
[2023-03-18] MEDS: LACTATED RINGERS 1,000 ML IV SCH ×2 (09:49→09:50)
[2023-03-18] MEDS: DOCUSATE SODIUM 100 MG CAPSULE PO SCH (09:49)
[2023-03-18] MEDS: LEVOTHYROXINE 25 MCG TABLET PO SCH (09:49)
[2023-03-18] MEDS: OXYTOCIN/SODIUM CHLORIDE 500 ML IV SCH (09:50)
--- NOTE | 2023-03-18 18:43 | PROVIDER PROGRESS NOTE ---
Subjective - Subjective Subjective: S: Bonding well with her baby. She is having difficulty so she has been pumping and syringe feeding. She is using a nipple shield which helped for the first feed this morning but since then the baby has not been sucking properly at the breast. She states once she latches she does not suck and she frequently falls asleep. She is getting a good amount of colostrum when pumping and she feels reassuring by this. Her bleeding is decreased and is light without clotting. Her pain is well controlled with oral medications and she feels she has been moving around much better and without pain today. Her Schuyler is supportive at the bedside. O: Vital signs are WNL and she has remained afebrile since her temperature immediately s/p Ampicillin and Gentamycin immediately . Heart RRR w/o M/G/R, lungs CTAB, abdomen soft and nontender, fundus firm at U, perineum intact, repair with mild edema, light lochia rubra. Bilateral LE"s no edema. A: 32yo -->P1 PPD#1 s/p TSVB viable female 2nd degree perineal laceration intact Normal recovery P: Continue routine care and medications. Nursing to work with patient to continue . Evaluate and plan for discharge home tomorrow. Objective - Vital Signs/Intake & Output Vital Signs: Vital Signs x48h Temp Pulse Resp BP BP Pulse Ox 03/18/23 16:27 36.2 C L 66 16 102/48 L 99 03/18/23 12:30 36.5 C 66 18 128/67 100 Intake & Output: Intake & Output 03/15/23 03/16/23 03/17/23 03/18/23 23:59 23:59 23:59 23:59 Intake Total 500 3093.250 120 Output Total 2550 Balance 500 543.250 120 - Lab Results Fish Bones: 03/16/23 14:50
[2023-03-19 02:01] VITALS: O2SAT 100
[2023-03-19] MEDS: IBUPROFEN 800 MG TABLET PO SCH ×3 (03:52→10:15)
[2023-03-19] MEDS: ACETAMINOPHEN 500 MG TABLET PO PRN (03:53)
[2023-03-19] MEDS: DOCUSATE SODIUM 100 MG CAPSULE PO SCH ×2 (04:12→10:12)
[2023-03-19] MEDS: LEVOTHYROXINE 25 MCG TABLET PO SCH (07:13)
[2023-03-19 07:16] VITALS: BP 116/77
--- NOTE | 2023-03-19 09:28 | Discharge Plan ---
Discharge Plan Problem Reviewed?: Yes Disposition: Home, Self Care Condition: Good Diet: Regular Activity Restrictions: No Restrictions Shower Restrictions: No Driving Restrictions: No Weight Bearing: Full Weight Instruction Topics: Vaginal After No Smoking: If you smoke, Please STOP! Call for help. Follow-up with: Swapna Tracey CNM, ARNP [Provider Admit Priv/Credential] - 2 Weeks
[2023-03-19] MEDS ORDERED: VARICELLA VACCINE LIVE/PF 1,350 UNIT/0.5 ML VIAL SUBQ ONE (09:38)
--- NOTE | 2023-03-19 09:38 | DISCHARGE SUMMARY ---
Discharge Summary Condition at Discharge: Good Discharge Disposition: 01 Home, Self Care - HOSPITAL COURSE Hospital Course: Date of Admission: 03/16/2023 Date of Discharge: 03/18/2023 Diagnosis on Admission: 1. 32yo @ 41.1wks gestation by LMP c/w 9.5wk U/S 2. Postdates 3. GBS negative 4. FHR Category I Diagnosis on Discharge: 1. 32yo PPD#2 s/p TSVB viable female infant 2. 2nd degree perineal laceration intact 3. 4. Varicella non-immune 5. Normal recovery Brief History: She [facility] who presented on 03/16/2023 for medical induction of labor with pre-induction cervical ripening secondary to postdates . Upon arrival her cervix was 1/30/-3 and vertex with intact membranes. A yoon cervical ripening balloon was placed and 1 dose of 50mcg BC misoprostol was given for effective pre-induction cervical ripening. AROM occurred for a small amount of clear fluid. Epidural was placed per maternal request. Pitocin initiated for augmentation of labor with a maximum infusion rate of 8mU/mL. She progressed to spontaneously deliver a viable female infant on 03/17/2023 @ 1345 with tight nuchal cord x 2 which was somersaulted through over 2nd degree perineal laceration which was repaired using a 2-[address]-1 needle in standard fashion and under sterile conditions. Apgars were 8/8 at 1 and 5 minutes respectively. EBL 200mL. She was noted to have a fever during her second stage that increased slightly after delivery and she was given 1 dose of Ampicillin and 1 dose of Gentamycin via IV. She has remained afebrile since that time. She has been doing well in her course. She is ambulating and tolerating a regular diet. She is urinating without difficulty and her lochia is normal. Her pain is well controlled with oral medications. She is bonding well with her baby. She is pumping and getting an adequate amount of pumped colostrum which she is syringe feeding to her baby and she feels confident about this process and her ability to ensure her baby is well fed. They have also supplemented with formula x 2 and she feels this went very well. Her Schuyler has remained supportive at the bedside. She will be discharged home today on day #2 with instructions to continue taking her vitamin while and to continue taking ibuprofen and tylenol over the counter as needed for pain management. She will also receive a varicella vaccination prior to discharge and she is noted to be non-immune. She intends to follow up with myself in 1 week for routine visit or sooner if needed. She has been given precautions to call if she has any worsening fevers, chills, abdominal pain, increased vaginal bleeding or foul smelling vaginal lochia. Physical exam: Normocephalic, atraumatic. Heart RRR w/o M/G/R, lungs CTAB, abdomen soft and nontender with fundus firm at U-2, perineum intact, light lochia rubra, bilateral LE's no edema. Mood is good. - ALLERGIES Allergies/Adverse Reactions: Allergies Allergy/AdvReac Type Severity Reaction Status Date / Time No Known Drug Allergies Allergy Verified 07/10/22 17:21 - MEDICATIONS Home Medications: Ambulatory Orders Medication Instructions Recorded Confirmed No Known Home Medications 07/10/22 07/10/22 - LABS Result Diagrams: 03/16/23 14:50
[2023-03-19] MEDS: LACTATED RINGERS 1,000 ML IV SCH ×2 (10:13→10:15)
[2023-03-19] MEDS: OXYTOCIN/SODIUM CHLORIDE 500 ML IV SCH (10:15)
--- NOTE | 2023-03-19 12:40 | Labor Flowsheet ---
Labor Flowsheet Datetime Report Generated by CPN: 03/19/2023 12:40 Datetime: 03/18/2023 12:29 VITAL SIGNS NBP Sys/Vonda/Mean (mmHg): 128 : 67 : 78 Pulse: 66 Datetime: 03/17/2023 19:50 SpO2 (%): 100 Datetime: 03/17/2023 17:50 Stage of : Datetime: 03/17/2023 14:28 Temperature (C): 39.3 Datetime: 03/17/2023 13:45 ASSESSMENT A Monitor Mode: External US FHR Baseline Rate : 165 FHR Baseline Changes: Tachycardia Variability: Moderate 6-25 bpm Accelerations: None Decelerations: Variable; Prolonged Category: Category II Datetime: 03/17/2023 13:30 UTERINE ACTIVITY Monitor Mode: External Frequency (min): 2 Quality: Moderate Duration (sec): 60 Pattern: Normal: <= 5 Contractions in 10 Minutes Resting Tone (Palpate): Relaxed LaborFlag: Labor Datetime: 03/17/2023 13:09 Pushing Progress: Presenting Part Visible Datetime: 03/17/2023 12:52 Station: 2 Datetime: 03/17/2023 12:49 Patient Care Comments: pt pushing in labor, will reassess after pushing Datetime: 03/17/2023 12:20 Monitor Interventions for UA: [place] Adjusted Datetime: 03/17/2023 12:06 I/O Interventions: Yoon Discontinued Datetime: 03/17/2023 11:52 STAGE 2 Pushing Position: Pushing with Contractions; Pushing Lithotomy Datetime: 03/17/2023 11:34 VAGINAL EXAM Dilatation (cm): 10.0 Effacement (%): 100 Exam by: Kyung Datetime: 03/17/2023 11:30 Patient Position/Activity: Right Tilt Datetime: 03/17/2023 11:29 PATIENT CARE IV/Blood Work: IV Bolus Given ml @ 500 Datetime: 03/17/2023 11:15 Actions for Decelerations: Side to Side; Provider Notified Datetime: 03/17/2023 10:30 MEDICATIONS Pitocin (milliunits): Increased to @ 6 Datetime: 03/17/2023 10:27 MATERNAL ASSESSMENT Level of Consciousness: Alert DTR's/Clonus: DTRs 2+ Headache: Denies Breath Sounds, Left: Clear and Equal Breath Sounds, Right: Clear and Equal Nausea/Vomiting: Present RUQ Epigastric Pain: Denies Datetime: 03/17/2023 09:30 Pitocin Checklist: At Least 1 Acceleration of 15 bpm x 15 Seconds in 30 Minutes or Adequate Variabi lity; No More than 1 Late Deceleration Occurred in Past 30 Minutes; No More than 2 Variable Decelerat ions > 60 Seconds in Duration and decreasing >60 bpm in 30 minutes; No More than 5 Uterine Contractio ns in 10 Minutes for any 20 Minute Interval; Uterus Palpates Soft between Contractions Contraction Comments: unable to trace on side; TOCO adjusted Datetime: 03/17/2023 08:46 Antiemetics/Antacids: Zofran (mg) @ 4mg Datetime: 03/17/2023 08:24 Membranes Ruptured Date/Time: 03/16/2023 20:59 Amniotic Fluid Color: Clear Amniotic Fluid Odor: Normal Cervical Ripening Agents Other: CRB 60/60 Datetime: 03/17/2023 08:01 Analgesics/Sedatives: Tylenol (mg) @ 650mg Datetime: 03/17/2023 04:06 Comments: Changed to external US due to batte life of telemetry Datetime: 03/17/2023 00:15 Epidural Procedure Other: Pump Started Datetime: 03/17/2023 00:10 Epidural Procedure: Loading Dose Datetime: 03/16/2023 23:53 PROCEDURE TIME OUT Procedure Verify: Correct Patient Identity; Correct Side and Site are Marked; Accurate Procedure Co nsent Form; Agreement on Procedure to be Done; Correct Patient Position; Relevant Images and Results are Properly Labeled and Displayed; Addressed Need to Administer Antibiotics or Fluids for Irrigation Epidural Positioning: Sitting Datetime: 03/16/2023 23:51 ANESTHESIA Anesthesia Plans: Epidural COMMUNICATION Communication: Provider at Bedside Provider Notified (Name): Almodovar Datetime: 03/16/2023 22:48 Medication Comments: nitrous started, patient education completed and proper use demonstrated Datetime: 03/16/2023 22:46 Comfort Measures: Breathing/Relaxation; Coaching Datetime: 03/16/2023 22:42 Pain Assessment Comments: 7 Datetime: 03/16/2023 22:14 PAIN Pain Scale: 5 Pain Presence: Intermittent Pain Type: Contraction Pain Location: Abdomen Pain Coping: Talking Through Contractions; Breathing Through Contractions; Declines Medication or E pidural Datetime: 03/16/2023 20:59 Membranes Rupture Method: Artificial Amniotic Fluid Amount: Scant Vaginal Bleeding: Normal Show Cervix, Consistency: Soft Membrane Comments: A. Kyung tried to AROM, Questionable rupture. RN to monitor for fluid Datetime: 03/16/2023 20:58 Provider Reviewed Strip: Yes Datetime: 03/16/2023 19:13 Membrane Status: Intact TEACHING Instructional Method: Verbal Plan of Care: Plan of Care Discussed Labor/Induction: Artificial Rupture of Membranes Pain Management: Pain Scale/Goals; Comfort Measures Related: Activity and Rest Datetime: 03/16/2023 18:35 Notification Reason: Status Update Communication Comments: Provider notified that yoon balloon has come out. Will be in to see pt. Datetime: 03/16/2023 17:53 Hygiene: Shower Datetime: 03/16/2023 15:50 Cervical Ripening Agents: Cytotec @ Datetime: 03/16/2023 13:48 Respirations: 18 Temperature Route: Oral
== END 2023-03-19 11:40 | disposition home or self-care (01) | DRG 806 ==
LOC: WFO 12:46 → FBP 12:50 → WFO 13:47 → FBP 13:48 → OBSVTOIN 03-17 09:30 → FBP 03-18 12:51
PROVIDERS: ADMIT Nurse Practitioner Obstetrics & Gynecology; ATTEND Nurse Practitioner Obstetrics & Gynecology
PROC: 10907ZC Drainage of Amniotic Fluid, Therapeutic from Products of Conception, Via Natural or Artificial Opening (ICD-10-PCS; 2023-03-16)
PROC: 3E0DXGC Introduction of Other Therapeutic Substance into Mouth and Pharynx, External Approach (ICD-10-PCS; 2023-03-16)
PROC: 0U7C7ZZ Dilation of Cervix, Via Natural or Artificial Opening (ICD-10-PCS; 2023-03-16)
PROC: 10E0XZZ Delivery of Products of Conception, External Approach (ICD-10-PCS; principal; 2023-03-17)
PROC: 0KQM0ZZ Repair Perineum Muscle, Open Approach (ICD-10-PCS; 2023-03-17)
DX: O48.0 Post-term pregnancy (principal); O75.2 Pyrexia during labor, not elsewhere classified; Z37.0 Single live birth; Z3A.41 41 weeks gestation of pregnancy; O70.1 Second degree perineal laceration during delivery; O69.1XX0 Labor and delivery complicated by cord around neck, with compression, not applicable or unspecified; O99.214 Obesity complicating childbirth; O99.284 Endocrine, nutritional and metabolic diseases complicating childbirth; E03.9 Hypothyroidism, unspecified; Z79.890 Hormone replacement therapy
CPT/HCPCS: 85025; 86850; 86900; 86901; 86920; 90716; 96361; 96365; 96367; 96375; A9270; J1580; J7120; 59409